=== PATIENT | male | born 1930 | race Caucasian/White ===

== ENCOUNTER 2018-11-10 23:08 | Inpatient (IN) | payer OTHER, MEDICAID ==
[2018-11-10 23:54] LABS: ADD MAN DIFF? NO
[2018-11-10 23:55] LABS: ABNORMAL IP MESSAGE 1; BASOPHIL # 0.1 10^3/ul (0.0-0.1); BASOPHILS % 0.3 % (0.0-2.0); HEMATOCRIT 38.9 % (42.0-52.0); HEMOGLOBIN 12.8 g/dl (14.0-18.0); LYMPHOCYTES # 1.6 10^3/ul (0.8-2.9); LYMPHOCYTES % 8.7 % (15.0-51.0); MEAN CORPUSCULAR HEMOGLOBIN 29.6 pg (29.0-33.0); MEAN CORPUSCULAR HGB CONC 32.9 g/dl (32.0-37.0); MEAN CORPUSCULAR VOLUME 89.8 fl (82.0-101.0); MEAN PLATELET VOLUME 11.6 fl (7.4-10.4); MONOCYTE # 2.8 10^3/ul (0.3-0.9); NEUTROPHIL # 14.1 10^3/ul (1.6-7.5); NEUTROPHILS % 75.1 % (39.0-77.0); PLATELET COUNT 158 10^3/UL (140-415); POSITIVE DIFF @See below; RED BLOOD COUNT 4.33 10^6/ul (4.70-6.10); RED CELL DISTRIBUTION WIDTH 14.6 % (11.5-14.5)
[2018-11-10 23:55] LABS: WHITE BLOOD COUNT 18.8 10^3/ul (4.8-10.8)
[2018-11-11] MEDS: CEFTRIAXONE 1 GM/50 ML (PMX) 50 ML IVPB (00:01)
[2018-11-11] MEDS: ONDANSETRON 4 MG INJ IV ×2 (00:01→01:45)
[2018-11-11] MEDS: SOD CHLORIDE 0.9% 1,000 ML IV ×3 (00:01→12:08)
[2018-11-11 00:12] LABS: ALANINE AMINOTRANSFERASE 22 IU/L (13-69); ALBUMIN 3.2 g/dl (3.3-4.9); ALBUMIN/GLOBULIN RATIO 0.82; ALKALINE PHOSPHATASE 89 IU/L (42-121); ANION GAP 13 (5-13); ASPARTATE AMINO TRANSFERASE 22 IU/L (15-46); BILIRUBIN,INDIRECT 1.9 mg/dl (0-1.1); BILIRUBIN,TOTAL 1.9 mg/dl (0.2-1.3); BLOOD UREA NITROGEN 35 mg/dl (7-20); CALCIUM 8.7 mg/dl (8.4-10.2); CARBON DIOXIDE 22 mmol/L (21-31); CHLORIDE 99 mmol/L (97-110); CREATININE 1.28 mg/dl (0.61-1.24); GLUCOSE 293 mg/dl (70-220); LIPASE 30 U/L (23-300); POTASSIUM 4.3 mmol/L (3.5-5.1); SODIUM 134 mmol/L (135-144); TOTAL PROTEIN 7.1 g/dl (6.1-8.1)
[2018-11-11 00:15] LABS: INR 1.87; PROTIME 21.6 Sec (11.9-14.9); PT RATIO 1.7
[2018-11-11 00:16] LABS: PARTIAL THROMBOPLASTIN TIME 67.3 Sec (23.0-35.0)
[2018-11-11] MEDS: PANTOPRAZOLE IV 80 MG in SOD CHLORIDE 0.9% 100 ML IVPB (00:35)
[2018-11-11] MEDS: PANTOPRAZOLE IV 80 MG in SOD CHLORIDE 0.9% 100 ML IV ×3 (00:53→18:23)
[2018-11-11] MEDS: OCTREOTIDE 50 MCG in SOD CHLORIDE 0.9% 25 ML IVPB (00:54)
[2018-11-11] MEDS: OCTREOTIDE 500 MCG in SOD CHLORIDE 0.9% 49 ML IV (01:03)
[2018-11-11] MEDS: morphine 4 MG/ML VIAL IV (01:45)
[2018-11-11] MEDS ORDERED: ACETAMINOPHEN 325 MG TAB PO (02:00)
[2018-11-11] MEDS ORDERED: NACL 0.9% 3 ML SYG IV (02:00)
[2018-11-11] MEDS ORDERED: ONDANSETRON 4 MG INJ IV (02:00)
[2018-11-11] MEDS: HYDROmorphONE 0.5 MG/0.5 ML SYG IV ×2 (04:05→08:59)
[2018-11-11 05:46] LABS: ADD MAN DIFF? NO; HAAIG REFLEX REFLEX FILED
[2018-11-11 05:50] LABS: WHITE BLOOD COUNT 22.1 10^3/ul (4.8-10.8)
[2018-11-11 05:51] LABS: ABNORMAL IP MESSAGE 1; BASOPHILS % 0.2 % (0.0-2.0); HEMATOCRIT 38.9 % (42.0-52.0); LYMPHOCYTES # 1.9 10^3/ul (0.8-2.9); LYMPHOCYTES % 8.4 % (15.0-51.0); MEAN CORPUSCULAR HEMOGLOBIN 29.7 pg (29.0-33.0); MEAN CORPUSCULAR HGB CONC 33.4 g/dl (32.0-37.0); MEAN CORPUSCULAR VOLUME 88.8 fl (82.0-101.0); MEAN PLATELET VOLUME 11.2 fl (7.4-10.4); MONOCYTE # 2.6 10^3/ul (0.3-0.9); MONOCYTES % 11.7 % (0.0-11.0); NEUTROPHIL # 17.4 10^3/ul (1.6-7.5); NEUTROPHILS % 78.6 % (39.0-77.0); PLATELET COUNT 208 10^3/UL (140-415); POSITIVE DIFF @See below; RED BLOOD COUNT 4.38 10^6/ul (4.70-6.10); RED CELL DISTRIBUTION WIDTH 14.8 % (11.5-14.5)
[2018-11-11 06:00] LABS: LACTIC ACID 1.7 mmol/L (0.5-2.0)
[2018-11-11 06:41] LABS: HEMOGLOBIN A1C 7.5 % (0-5.9)
[2018-11-11] MEDS: PIPER-TAZO 3.375 GM IV (PMX) 100 ML IVPB ×3 (06:44→20:37)
[2018-11-11 07:03] LABS: CHOLESTEROL 139 mg/dl (100-200)
[2018-11-11 07:03] LABS: CHOL/HDL RATIO 5.5 RATIO; HDL CHOLESTEROL 25 mg/dl (31-75); LDL CHOLESTEROL,CALCULATED 100 mg/dl; TRIGLYCERIDES 69 mg/dl (0-149)
[2018-11-11 07:55] LABS: MAGNESIUM 1.8 mg/dl (1.7-2.5)
[2018-11-11 08:25] LABS: THYROID STIMULATING HORMONE 0.463 MIU/L (0.465-4.680)
[2018-11-11 08:28] LABS: HEPATITIS B SURFACE ANTIBODY NEGATIVE (NEGATIVE)
[2018-11-11] MEDS: LIDOCAINE/MYLANTA 40 ML BTL PO (08:58)
[2018-11-11] MEDS: DEXTROSE 5%-0.45% NACL 1,000 ML IV (08:59)
[2018-11-11] MEDS: OCTREOTIDE 1 MG in DEXTROSE 5% 95 ML IV (09:27)
[2018-11-11] MEDS: INSULIN ASPART [NOVOLOG] 3 ML PEN SC ×4 (09:33→20:44)
[2018-11-11 11:29] LABS: ADD MAN DIFF? NO
[2018-11-11 11:30] LABS: ABNORMAL IP MESSAGE 1; BASOPHILS % 0.2 % (0.0-2.0); HEMATOCRIT 37.8 % (42.0-52.0); HEMOGLOBIN 12.4 g/dl (14.0-18.0); LYMPHOCYTES # 1.9 10^3/ul (0.8-2.9); LYMPHOCYTES % 8.8 % (15.0-51.0); MEAN CORPUSCULAR HEMOGLOBIN 29.5 pg (29.0-33.0); MEAN CORPUSCULAR HGB CONC 32.8 g/dl (32.0-37.0); MEAN CORPUSCULAR VOLUME 89.8 fl (82.0-101.0); MEAN PLATELET VOLUME 11.2 fl (7.4-10.4); MONOCYTE # 2.3 10^3/ul (0.3-0.9); MONOCYTES % 10.9 % (0.0-11.0); NEUTROPHILS % 78.9 % (39.0-77.0); PLATELET COUNT 188 10^3/UL (140-415); POSITIVE DIFF @See below; RED BLOOD COUNT 4.21 10^6/ul (4.70-6.10); RED CELL DISTRIBUTION WIDTH 15.1 % (11.5-14.5)
[2018-11-11 11:30] LABS: WHITE BLOOD COUNT 21.5 10^3/ul (4.8-10.8)
[2018-11-11] MEDS ORDERED: GLUCOSE GEL 15 GRAM TUBE BUCCAL (12:00)
[2018-11-11] MEDS ORDERED: GLUCOSE GEL 15 GRAM TUBE PO ×2 (12:00)
[2018-11-11] MEDS ORDERED: DEXTROSE 50% 50 ML SYRINGE IV ×2 (12:00)
[2018-11-11] MEDS ORDERED: GLUCAGON 1 MG INJ IM (12:00)
[2018-11-11] MEDS: POLYETHYLENE GLYCOL 17 GM PACKET PO (12:00)
[2018-11-11 12:06] LABS: HEPATITIS B SURFACE ANTIGEN NEGATIVE (NEGATIVE)
[2018-11-11] MEDS: METOPROLOL 5 MG INJ IV (12:09)
[2018-11-11 12:23] LABS: HEPATITIS B CORE ANTIBODY NEGATIVE (NEGATIVE); HEPATITIS C VIRAL ANTIBODY NEGATIVE (NEGATIVE)
[2018-11-11 15:52] LABS: TYPE AND SCREEN 1 1
[2018-11-11 17:17] LABS: ADD MAN DIFF? NO
[2018-11-11 17:18] LABS: ABNORMAL IP MESSAGE 1; BASOPHIL # 0.1 10^3/ul (0.0-0.1); BASOPHILS % 0.3 % (0.0-2.0); HEMATOCRIT 38.1 % (42.0-52.0); HEMOGLOBIN 12.3 g/dl (14.0-18.0); LYMPHOCYTES # 1.3 10^3/ul (0.8-2.9); LYMPHOCYTES % 6.3 % (15.0-51.0); MEAN CORPUSCULAR HEMOGLOBIN 29.9 pg (29.0-33.0); MEAN CORPUSCULAR HGB CONC 32.3 g/dl (32.0-37.0); MEAN CORPUSCULAR VOLUME 92.5 fl (82.0-101.0); MEAN PLATELET VOLUME 11.1 fl (7.4-10.4); MONOCYTE # 2.4 10^3/ul (0.3-0.9); MONOCYTES % 11.7 % (0.0-11.0); NEUTROPHIL # 16.6 10^3/ul (1.6-7.5); NEUTROPHILS % 80.1 % (39.0-77.0); PLATELET COUNT 172 10^3/UL (140-415); POSITIVE DIFF @See below; RED BLOOD COUNT 4.12 10^6/ul (4.70-6.10); RED CELL DISTRIBUTION WIDTH 15.2 % (11.5-14.5)
[2018-11-11 17:18] LABS: WHITE BLOOD COUNT 20.7 10^3/ul (4.8-10.8)
[2018-11-11] MEDS: DOCUSATE SODIUM 100 MG CAP PO (20:16)
[2018-11-11] MEDS: METOPROLOL 25 MG TAB PO (20:16)
[2018-11-11] MEDS ORDERED: CEFTRIAXONE 1 GM/50 ML (PMX) 50 ML IVPB (22:00)
[2018-11-11 23:02] LABS: ADD UMIC YES; UR ASCORBIC ACID NEGATIVE (NEGATIVE); UR BACTERIA FEW /HPF (NONE SEEN); UR BILIRUBIN (Dip) NEGATIVE (NEGATIVE); UR BLOOD (Dip) NEGATIVE (NEGATIVE); UR CLARITY SLIGHTLY CLOUDY (CLEAR); UR COLOR AMBER (YELLOW); UR GLUCOSE (Dip) 2+ mg/dL (NEGATIVE); UR KETONES (Dip) NEGATIVE (NEGATIVE); UR LEUKOCYTE ESTERASE (Dip) NEGATIVE Leu/ul (NEGATIVE); UR MUCUS FEW /HPF (NONE SEEN); UR NITRITE (Dip) NEGATIVE (NEGATIVE); UR RBC 3 /HPF (0-5); UR TOTAL PROTEIN (Dip) 1+ mg/dl (NEGATIVE); UR UROBILINOGEN (Dip) NEGATIVE (NEGATIVE); UR WBC 0 /HPF (0-5)
[2018-11-11 23:12] LABS: CREATININE,URINE RANDOM 125.62 mg/dl (20-370)
[2018-11-11 23:12] LABS: SODIUM,URINE RANDOM 28 mmol/L (30-90)
[2018-11-11 23:42] LABS: ADD MAN DIFF? NO
[2018-11-11 23:44] LABS: ABNORMAL IP MESSAGE 1; BASOPHIL # 0.1 10^3/ul (0.0-0.1); BASOPHILS % 0.3 % (0.0-2.0); HEMATOCRIT 36.6 % (42.0-52.0); HEMOGLOBIN 11.9 g/dl (14.0-18.0); LYMPHOCYTES # 2.1 10^3/ul (0.8-2.9); LYMPHOCYTES % 10.5 % (15.0-51.0); MEAN CORPUSCULAR HEMOGLOBIN 29.8 pg (29.0-33.0); MEAN CORPUSCULAR HGB CONC 32.5 g/dl (32.0-37.0); MEAN CORPUSCULAR VOLUME 91.5 fl (82.0-101.0); MEAN PLATELET VOLUME 10.6 fl (7.4-10.4); MONOCYTE # 2.1 10^3/ul (0.3-0.9); MONOCYTES % 10.4 % (0.0-11.0); NEUTROPHIL # 15.6 10^3/ul (1.6-7.5); NEUTROPHILS % 77.1 % (39.0-77.0); PLATELET COUNT 184 10^3/UL (140-415); POSITIVE DIFF @See below
[2018-11-11 23:44] LABS: WHITE BLOOD COUNT 20.2 10^3/ul (4.8-10.8)
[2018-11-12] MEDS: INSULIN ASPART [NOVOLOG] 3 ML PEN SC ×3 (01:00→07:57)
[2018-11-12] MEDS: ACCU-CHEK XX (02:00)
[2018-11-12] MEDS: SOD CHLORIDE 0.9% 1,000 ML IV ×2 (04:40→10:49)
[2018-11-12] MEDS: PIPER-TAZO 3.375 GM IV (PMX) 100 ML IVPB ×3 (05:45→21:38)
[2018-11-12] MEDS: PANTOPRAZOLE IV 80 MG in SOD CHLORIDE 0.9% 100 ML IV (05:45)
[2018-11-12 07:12] LABS: ANION GAP 10 (5-13); BLOOD UREA NITROGEN 36 mg/dl (7-20); CALCIUM 8.1 mg/dl (8.4-10.2); CARBON DIOXIDE 25 mmol/L (21-31); CHLORIDE 103 mmol/L (97-110); CREATININE 1.66 mg/dl (0.61-1.24); GLUCOSE 168 mg/dl (70-220); PHOSPHORUS 4.2 mg/dl (2.5-4.9); POTASSIUM 4.7 mmol/L (3.5-5.1); SODIUM 138 mmol/L (135-144)
[2018-11-12] MEDS: METOPROLOL 25 MG TAB PO (07:51)
[2018-11-12] MEDS: POLYETHYLENE GLYCOL 17 GM PACKET PO (07:51)
[2018-11-12] MEDS: DOCUSATE SODIUM 100 MG CAP PO ×2 (07:51→21:37)
[2018-11-12] MEDS: Insulin NOVOLOG SS MILD Algorithm (SS with meals and bedtime) SC ×3 (11:56→21:00)
[2018-11-12] MEDS: HYDROmorphONE 0.5 MG/0.5 ML SYG IV (15:56)
[2018-11-12] MEDS: PANTOPRAZOLE 40 MG INJ IV (17:30)
[2018-11-12] MEDS ORDERED: INSULIN ASPART [NOVOLOG] 3 ML PEN SC (17:30)
[2018-11-12] MEDS: METOPROLOL 50 MG TAB PO (21:00)
[2018-11-13] MEDS: SOD CHLORIDE 0.9% 250 ML IV (01:12)
[2018-11-13] MEDS: HYDROmorphONE 0.5 MG/0.5 ML SYG IV ×3 (01:39→21:47)
[2018-11-13] MEDS: ACCU-CHEK XX (02:00)
[2018-11-13] MEDS: SOD CHLORIDE 0.9% 500 ML IV (02:01)
[2018-11-13] MEDS ORDERED: LORAZEPAM 2 MG INJ (02:16)
[2018-11-13] MEDS: LORAZEPAM 2 MG INJ IV (02:21)
[2018-11-13] MEDS: METOPROLOL 5 MG INJ IV ×4 (04:08→06:50)
[2018-11-13] MEDS: PANTOPRAZOLE 40 MG INJ IV ×2 (05:02→16:56)
[2018-11-13 06:22] LABS: ADD MAN DIFF? NO
[2018-11-13 06:31] LABS: BASOPHILS % 0.1 % (0.0-2.0); EOSINOPHILS % 0.4 % (0.0-7.0); HEMATOCRIT 33.7 % (42.0-52.0); HEMOGLOBIN 10.9 g/dl (14.0-18.0); LYMPHOCYTES # 1.8 10^3/ul (0.8-2.9); LYMPHOCYTES % 20.4 % (15.0-51.0); MEAN CORPUSCULAR HEMOGLOBIN 29.7 pg (29.0-33.0); MEAN CORPUSCULAR HGB CONC 32.3 g/dl (32.0-37.0); MEAN CORPUSCULAR VOLUME 91.8 fl (82.0-101.0); MEAN PLATELET VOLUME 11.5 fl (7.4-10.4); MONOCYTE # 0.7 10^3/ul (0.3-0.9); MONOCYTES % 7.4 % (0.0-11.0); NEUTROPHIL # 6.4 10^3/ul (1.6-7.5); NEUTROPHILS % 70.8 % (39.0-77.0); PLATELET COUNT 150 10^3/UL (140-415); RED BLOOD COUNT 3.67 10^6/ul (4.70-6.10); RED CELL DISTRIBUTION WIDTH 15.4 % (11.5-14.5)
[2018-11-13] MEDS: PIPER-TAZO 3.375 GM IV (PMX) 100 ML IVPB ×3 (06:48→21:39)
[2018-11-13 06:54] LABS: ANION GAP 9 (5-13); BLOOD UREA NITROGEN 39 mg/dl (7-20); CALCIUM 7.7 mg/dl (8.4-10.2); CARBON DIOXIDE 21 mmol/L (21-31); CHLORIDE 109 mmol/L (97-110); CREATININE 1.44 mg/dl (0.61-1.24); GLUCOSE 146 mg/dl (70-220); MAGNESIUM 2.2 mg/dl (1.7-2.5); PHOSPHORUS 3.9 mg/dl (2.5-4.9); POTASSIUM 3.9 mmol/L (3.5-5.1); SODIUM 139 mmol/L (135-144)
[2018-11-13] MEDS: Insulin NOVOLOG SS MILD Algorithm (SS with meals and bedtime) SC ×4 (07:00→21:00)
[2018-11-13] MEDS: POLYETHYLENE GLYCOL 17 GM PACKET PO (08:12)
[2018-11-13] MEDS: DOCUSATE SODIUM 100 MG CAP PO ×2 (08:13→21:39)
[2018-11-13] MEDS: METOPROLOL 50 MG TAB PO ×2 (08:13→21:00)
[2018-11-13] MEDS: HEPARIN 5,000 UNIT/1 ML VIAL SC ×2 (08:24→21:00)
[2018-11-13] MEDS: SOD CHLORIDE 0.9% 1,000 ML IV ×2 (09:07→13:02)
[2018-11-13] MEDS: TAMSULOSIN (SR) 0.4 MG CAP PO ×2 (12:20→21:38)
[2018-11-13] MEDS: FINASTERIDE 5 MG TAB PO (14:30)
[2018-11-13] MEDS: BALSAM PERU/CASTOR OIL 60 GM TUBE TOP (21:38)
[2018-11-13] MEDS: DILTIAZEM 25 MG INJ IV (23:00)
[2018-11-14] MEDS: ACCU-CHEK XX (01:50)
[2018-11-14] MEDS: SOD CHLORIDE 0.9% 1,000 ML IV ×2 (03:34→21:37)
[2018-11-14] MEDS: PANTOPRAZOLE 40 MG INJ IV ×2 (05:21→17:32)
[2018-11-14] MEDS: PIPER-TAZO 3.375 GM IV (PMX) 100 ML IVPB ×3 (05:23→21:32)
[2018-11-14 06:54] LABS: ADD MAN DIFF? NO
[2018-11-14 07:00] LABS: WHITE BLOOD COUNT 5.4 10^3/ul (4.8-10.8)
[2018-11-14 07:00] LABS: BASOPHILS % 0.4 % (0.0-2.0); EOSINOPHILS # 0.1 10^3/ul (0.0-0.5); EOSINOPHILS % 1.7 % (0.0-7.0); HEMATOCRIT 35.9 % (42.0-52.0); HEMOGLOBIN 11.2 g/dl (14.0-18.0); LYMPHOCYTES # 1.2 10^3/ul (0.8-2.9); LYMPHOCYTES % 22.4 % (15.0-51.0); MEAN CORPUSCULAR HEMOGLOBIN 29.6 pg (29.0-33.0); MEAN CORPUSCULAR HGB CONC 31.2 g/dl (32.0-37.0); MEAN CORPUSCULAR VOLUME 94.7 fl (82.0-101.0); MEAN PLATELET VOLUME 11.1 fl (7.4-10.4); MONOCYTE # 0.4 10^3/ul (0.3-0.9); MONOCYTES % 7.8 % (0.0-11.0); NEUTROPHIL # 3.6 10^3/ul (1.6-7.5); PLATELET COUNT 167 10^3/UL (140-415); RED BLOOD COUNT 3.79 10^6/ul (4.70-6.10); RED CELL DISTRIBUTION WIDTH 15.2 % (11.5-14.5)
[2018-11-14] MEDS: Insulin NOVOLOG SS MILD Algorithm (SS with meals and bedtime) SC ×4 (07:00→21:00)
[2018-11-14 07:33] LABS: ANION GAP 9 (5-13); BLOOD UREA NITROGEN 38 mg/dl (7-20); CALCIUM 7.7 mg/dl (8.4-10.2); CARBON DIOXIDE 21 mmol/L (21-31); CHLORIDE 110 mmol/L (97-110); CREATININE 1.26 mg/dl (0.61-1.24); GLUCOSE 106 mg/dl (70-220); MAGNESIUM 2.2 mg/dl (1.7-2.5); PHOSPHORUS 3.2 mg/dl (2.5-4.9); POTASSIUM 3.8 mmol/L (3.5-5.1); SODIUM 140 mmol/L (135-144)
[2018-11-14] MEDS: METOPROLOL 50 MG TAB PO ×2 (09:00→21:31)
[2018-11-14] MEDS: DOCUSATE SODIUM 100 MG CAP PO ×2 (10:53→21:31)
[2018-11-14] MEDS: POLYETHYLENE GLYCOL 17 GM PACKET PO (10:53)
[2018-11-14] MEDS: TAMSULOSIN (SR) 0.4 MG CAP PO ×2 (10:53→21:31)
[2018-11-14] MEDS: FINASTERIDE 5 MG TAB PO (10:53)
[2018-11-14] MEDS: BALSAM PERU/CASTOR OIL 60 GM TUBE TOP ×2 (10:54→21:31)
[2018-11-14] MEDS: HEPARIN 5,000 UNIT/1 ML VIAL SC ×2 (10:55→22:05)
[2018-11-14 13:29] LABS: OCCULT BLOOD STOOL POSITIVE (NEGATIVE)
[2018-11-14] MEDS: HYDROmorphONE 0.5 MG/0.5 ML SYG IV (21:42)
[2018-11-15] MEDS: ACCU-CHEK XX (01:45)
[2018-11-15] MEDS: PIPER-TAZO 3.375 GM IV (PMX) 100 ML IVPB ×3 (05:25→21:18)
[2018-11-15] MEDS: PANTOPRAZOLE 40 MG INJ IV ×2 (05:27→18:43)
[2018-11-15 06:30] LABS: ADD MAN DIFF? NO
[2018-11-15 06:47] LABS: WHITE BLOOD COUNT 4.9 10^3/ul (4.8-10.8)
[2018-11-15 06:47] LABS: BASOPHILS % 0.2 % (0.0-2.0); EOSINOPHILS # 0.1 10^3/ul (0.0-0.5); EOSINOPHILS % 1.8 % (0.0-7.0); HEMATOCRIT 31.2 % (42.0-52.0); LYMPHOCYTES # 1.7 10^3/ul (0.8-2.9); LYMPHOCYTES % 34.9 % (15.0-51.0); MEAN CORPUSCULAR HEMOGLOBIN 29.6 pg (29.0-33.0); MEAN CORPUSCULAR HGB CONC 32.1 g/dl (32.0-37.0); MEAN CORPUSCULAR VOLUME 92.3 fl (82.0-101.0); MEAN PLATELET VOLUME 10.8 fl (7.4-10.4); MONOCYTE # 0.5 10^3/ul (0.3-0.9); MONOCYTES % 9.8 % (0.0-11.0); NEUTROPHIL # 2.6 10^3/ul (1.6-7.5); NEUTROPHILS % 52.5 % (39.0-77.0); PLATELET COUNT 180 10^3/UL (140-415); RED BLOOD COUNT 3.38 10^6/ul (4.70-6.10); RED CELL DISTRIBUTION WIDTH 14.9 % (11.5-14.5)
[2018-11-15] MEDS: Insulin NOVOLOG SS MILD Algorithm (SS with meals and bedtime) SC ×4 (07:00→20:13)
[2018-11-15 07:43] LABS: ANION GAP 9 (5-13); BLOOD UREA NITROGEN 34 mg/dl (7-20); CALCIUM 7.8 mg/dl (8.4-10.2); CARBON DIOXIDE 20 mmol/L (21-31); CHLORIDE 111 mmol/L (97-110); CREATININE 1.29 mg/dl (0.61-1.24); GLUCOSE 93 mg/dl (70-220); MAGNESIUM 2.1 mg/dl (1.7-2.5); PHOSPHORUS 2.6 mg/dl (2.5-4.9); POTASSIUM 3.6 mmol/L (3.5-5.1); SODIUM 140 mmol/L (135-144)
[2018-11-15] MEDS: FINASTERIDE 5 MG TAB PO (09:26)
[2018-11-15] MEDS: DOCUSATE SODIUM 100 MG CAP PO ×2 (09:26→20:13)
[2018-11-15] MEDS: TAMSULOSIN (SR) 0.4 MG CAP PO ×2 (09:26→20:13)
[2018-11-15] MEDS: METOPROLOL 50 MG TAB PO ×2 (09:26→20:14)
[2018-11-15] MEDS: BALSAM PERU/CASTOR OIL 60 GM TUBE TOP ×2 (09:26→20:13)
[2018-11-15] MEDS: BISACODYL 10 MG SUPP PR (09:27)
[2018-11-15] MEDS: POLYETHYLENE GLYCOL 17 GM PACKET PO (09:27)
[2018-11-15] MEDS: HEPARIN 5,000 UNIT/1 ML VIAL SC ×2 (09:38→20:19)
[2018-11-15 14:06] LABS: CREATININE, RANDOM URINE 120 mg/dL (20-320); MICROALBUMIN 8.3 mg/dL; MICROALBUMIN/CREATININE RATIO 69 (<30)
[2018-11-15] MEDS: SOD CHLORIDE 0.9% 1,000 ML IV ×2 (16:00→23:42)
[2018-11-15] MEDS: LIDOCAINE 1% (MDV) 20 ML INJ ×3 (20:12)
[2018-11-16] MEDS: ACCU-CHEK XX (01:40)
[2018-11-16] MEDS: PANTOPRAZOLE 40 MG INJ IV ×2 (05:46→17:11)
[2018-11-16] MEDS: PIPER-TAZO 3.375 GM IV (PMX) 100 ML IVPB ×2 (05:47→13:21)
[2018-11-16] MEDS: Insulin NOVOLOG SS MILD Algorithm (SS with meals and bedtime) SC ×3 (06:17→17:15)
[2018-11-16] MEDS: DOCUSATE SODIUM 100 MG CAP PO (08:02)
[2018-11-16] MEDS: METOPROLOL 50 MG TAB PO (08:02)
[2018-11-16] MEDS: TAMSULOSIN (SR) 0.4 MG CAP PO (08:02)
[2018-11-16] MEDS: FINASTERIDE 5 MG TAB PO (08:02)
[2018-11-16] MEDS: POLYETHYLENE GLYCOL 17 GM PACKET PO (08:02)
[2018-11-16] MEDS: HEPARIN 5,000 UNIT/1 ML VIAL SC (08:03)
[2018-11-16] MEDS: BALSAM PERU/CASTOR OIL 60 GM TUBE TOP (08:04)
[2018-11-16] MEDS ORDERED: CALCIUM CARBONATE 500 MG CHEW TAB PO (11:00)
[2018-11-16 11:03] LABS: ANION GAP 7 (5-13); BLOOD UREA NITROGEN 28 mg/dl (7-20); CALCIUM 7.8 mg/dl (8.4-10.2); CARBON DIOXIDE 22 mmol/L (21-31); CHLORIDE 111 mmol/L (97-110); CREATININE 1.22 mg/dl (0.61-1.24); GLUCOSE 138 mg/dl (70-220); POTASSIUM 4.2 mmol/L (3.5-5.1); SODIUM 140 mmol/L (135-144)
== END 2018-11-16 18:40 | DRG 872 ==
LOC: E/R 23:08 → 6WM 11-11 01:30
PROC: 0T9B70Z Drainage of Bladder with Drainage Device, Via Natural or Artificial Opening (ICD-10-PCS; 2018-11-11)
PROC: 30233K1 Transfusion of Nonautologous Frozen Plasma into Peripheral Vein, Percutaneous Approach (ICD-10-PCS; 2018-11-11)
PROC: 0F9430Z Drainage of Gallbladder with Drainage Device, Percutaneous Approach (ICD-10-PCS; principal; 2018-11-12)
DX: A41.9 Sepsis, unspecified organism (principal); K80.00 Calculus of gallbladder with acute cholecystitis without obstruction; R18.8 Other ascites; N17.9 Acute kidney failure, unspecified; Z66 Do not resuscitate; R74.0 Nonspecific elevation of levels of transaminase and lactic acid dehydrogenase [LDH]; R79.1 Abnormal coagulation profile; I25.10 Atherosclerotic heart disease of native coronary artery without angina pectoris; I25.2 Old myocardial infarction; F03.90 Unspecified dementia, unspecified severity, without behavioral disturbance, psychotic disturbance, mood disturbance, and anxiety; K52.9 Noninfective gastroenteritis and colitis, unspecified; E11.51 Type 2 diabetes mellitus with diabetic peripheral angiopathy without gangrene; I48.2 Chronic atrial fibrillation; E03.9 Hypothyroidism, unspecified; N40.1 Benign prostatic hyperplasia with lower urinary tract symptoms; R33.8 Other retention of urine; K59.00 Constipation, unspecified; N21.0 Calculus in bladder; E11.22 Type 2 diabetes mellitus with diabetic chronic kidney disease; I12.9 Hypertensive chronic kidney disease with stage 1 through stage 4 chronic kidney disease, or unspecified chronic kidney disease; N18.9 Chronic kidney disease, unspecified; N32.89 Other specified disorders of bladder; T38.995A Adverse effect of other hormone antagonists, initial encounter; Z86.73 Personal history of transient ischemic attack (TIA), and cerebral infarction without residual deficits; Z89.512 Acquired absence of left leg below knee; Z89.421 Acquired absence of other right toe(s); Z79.84 Long term (current) use of oral hypoglycemic drugs; Z88.2 Allergy status to sulfonamides; Z87.891 Personal history of nicotine dependence
CPT/HCPCS: 36415; 36430; 71045; 74176; 75989; 76705; 76775; 77012; 78226; 80048; 80053; 80061; 81001; 81003; 82043; 82270; 82962; 83036; 83605; 83690; 83735; 84100; 84155; 84300; 84443; 84484; 85025; 85610; 85730; 86704; 86706; 86709; 86803; 86850; 86900; 86901; 87040; 87070; 87075; 87086; 87340; 93005; 93922; 96374; 96375; 96376; 99285-25

== ENCOUNTER 2018-12-14 12:26 | Inpatient (IN) | payer OTHER, MEDICAID ==
[2018-12-14 13:27] LABS: ADD MAN DIFF? NO
[2018-12-14] MEDS: FENTAnyl 50 MCG/ML VIAL IV ×2 (13:29→19:02)
[2018-12-14 13:32] LABS: WHITE BLOOD COUNT 6.1 10^3/ul (4.8-10.8)
[2018-12-14 13:32] LABS: BASOPHILS % 0.5 % (0.0-2.0); EOSINOPHILS # 0.1 10^3/ul (0.0-0.5); EOSINOPHILS % 2.1 % (0.0-7.0); HEMATOCRIT 38.9 % (42.0-52.0); HEMOGLOBIN 12.5 g/dl (14.0-18.0); LYMPHOCYTES # 2.1 10^3/ul (0.8-2.9); MEAN CORPUSCULAR HEMOGLOBIN 28.9 pg (29.0-33.0); MEAN CORPUSCULAR HGB CONC 32.1 g/dl (32.0-37.0); MEAN PLATELET VOLUME 11.3 fl (7.4-10.4); MONOCYTE # 0.6 10^3/ul (0.3-0.9); MONOCYTES % 10.1 % (0.0-11.0); NEUTROPHIL # 3.1 10^3/ul (1.6-7.5); NEUTROPHILS % 51.8 % (39.0-77.0); PLATELET COUNT 196 10^3/UL (140-415); RED BLOOD COUNT 4.32 10^6/ul (4.70-6.10); RED CELL DISTRIBUTION WIDTH 14.5 % (11.5-14.5)
[2018-12-14 13:50] LABS: ALANINE AMINOTRANSFERASE 9 IU/L (13-69); ALBUMIN 3.5 g/dl (3.3-4.9); ALBUMIN/GLOBULIN RATIO 0.79; ALKALINE PHOSPHATASE 119 IU/L (42-121); ANION GAP 7 (5-13); ASPARTATE AMINO TRANSFERASE 19 IU/L (15-46); BILIRUBIN,INDIRECT 0.6 mg/dl (0-1.1); BILIRUBIN,TOTAL 0.6 mg/dl (0.2-1.3); BLOOD UREA NITROGEN 29 mg/dl (7-20); CALCIUM 8.9 mg/dl (8.4-10.2); CARBON DIOXIDE 26 mmol/L (21-31); CHLORIDE 104 mmol/L (97-110); CREATININE 1.22 mg/dl (0.61-1.24); GLUCOSE 251 mg/dl (70-220); LIPASE 64 U/L (23-300); POTASSIUM 4.3 mmol/L (3.5-5.1); SODIUM 137 mmol/L (135-144); TOTAL PROTEIN 7.9 g/dl (6.1-8.1)
[2018-12-14 13:55] LABS: INR 0.98; PARTIAL THROMBOPLASTIN TIME 30.2 Sec (23.0-35.0); PROTIME 13.1 Sec (11.9-14.9)
[2018-12-14 14:02] LABS: TROPONIN-I < 0.012 ng/ml (0.000-0.120)
[2018-12-14 14:17] LABS: URINE PH (Dip) POC 5.5 (5.0-8.5)
[2018-12-14 14:17] LABS: URINE BLOOD (Dip) POC Negative (NEGATIVE); URINE KETONES (Dip) POC Negative (NEGATIVE); URINE LEUKOCYTE EST (Dip) POC Negative (NEGATIVE); URINE NITRITE (Dip) POC Negative (NEGATIVE); URINE TOTAL PROTEIN POC 1+ (NEGATIVE)
[2018-12-14] MEDS: SOD CHLORIDE 0.9% 500 ML IV ×2 (14:25→19:21)
[2018-12-14] MEDS: IOHEXOL 300MG/ML 30 ML BTL (15:48)
[2018-12-14] MEDS ORDERED: LORAZEPAM 2 MG INJ IV (19:00)
[2018-12-14] MEDS ORDERED: NACL 0.9% 3 ML SYG IV (19:00)
[2018-12-14] MEDS ORDERED: ALBUTEROL/IPRATROPIUM (NEB) 3 ML AMP HHN (19:00)
[2018-12-14] MEDS ORDERED: DOCUSATE SODIUM 100 MG CAP PO (19:00)
[2018-12-14] MEDS ORDERED: NON-FORMULARY/PATIENT OWN MED (Tuberculin,Purif.prot.deriv. (Tubersol) 5 TUB) ID (19:00)
[2018-12-14] MEDS ORDERED: SENNA TAB PO (19:00)
[2018-12-14] MEDS ORDERED: NITROGLYCERIN (SL) 0.4 MG TAB SL (19:00)
[2018-12-14] MEDS ORDERED: hydrALAzine 20 MG INJ IV (19:00)
[2018-12-14] MEDS ORDERED: ACETAMINOPHEN 325 MG TAB PO ×2 (19:00)
[2018-12-14] MEDS: PIPER-TAZO 3.375 GM IV (PMX) 100 ML IVPB (19:03)
[2018-12-14 20:01] LABS: FREE T4 (FREE THYROXINE) 1.19 ng/dl (0.85-1.93)
[2018-12-14] MEDS ORDERED: GLUCOSE GEL 15 GRAM TUBE PO ×2 (20:30)
[2018-12-14] MEDS ORDERED: DEXTROSE 50% 50 ML SYRINGE IV ×2 (20:30)
[2018-12-14] MEDS ORDERED: GLUCAGON 1 MG INJ IM (20:30)
[2018-12-14] MEDS ORDERED: GLUCOSE GEL 15 GRAM TUBE BUCCAL (20:30)
[2018-12-14] MEDS ORDERED: NON-FORMULARY/PATIENT OWN MED (Protein Supplement (Promod) 30 ML) PO (21:00)
[2018-12-14] MEDS: SOD CHLORIDE 0.45% 1,000 ML IV (22:02)
[2018-12-14] MEDS: morphine 2 MG INJ IV (22:28)
[2018-12-14] MEDS ORDERED: DIMETHICONE STICK TOP (22:30)
[2018-12-14] MEDS: METOPROLOL 50 MG TAB PO (22:56)
[2018-12-14] MEDS: TAMSULOSIN (SR) 0.4 MG CAP PO (22:56)
[2018-12-15] MEDS: PIPER-TAZO 3.375 GM IV (PMX) 100 ML IVPB ×4 (00:52→18:51)
[2018-12-15] MEDS: INSULIN ASPART [NOVOLOG] 3 ML PEN SC ×6 (01:37→21:35)
[2018-12-15] MEDS: ACCU-CHEK XX (02:25)
[2018-12-15] MEDS ORDERED: PENDING SANTYL ORDER FOR WOUND CARE XX (06:30)
[2018-12-15] MEDS: PANTOPRAZOLE 40 MG INJ IV (06:44)
[2018-12-15] MEDS: SOD CHLORIDE 0.45% 1,000 ML IV ×2 (08:14→21:34)
[2018-12-15] MEDS: ASCORBIC ACID 500 MG TAB PO (08:15)
[2018-12-15] MEDS: FINASTERIDE 5 MG TAB PO (08:16)
[2018-12-15] MEDS: LISINOPRIL 5 MG TAB PO (08:16)
[2018-12-15] MEDS: METOPROLOL 50 MG TAB PO ×2 (08:17→21:28)
[2018-12-15] MEDS ORDERED: PANTOPRAZOLE (EC) 40 MG TAB PO (09:00)
[2018-12-15 10:10] LABS: ADD MAN DIFF? NO
[2018-12-15 10:11] LABS: BASOPHILS % 0.5 % (0.0-2.0); EOSINOPHILS # 0.1 10^3/ul (0.0-0.5); EOSINOPHILS % 1.8 % (0.0-7.0); HEMATOCRIT 36.8 % (42.0-52.0); HEMOGLOBIN 11.6 g/dl (14.0-18.0); LYMPHOCYTES # 1.6 10^3/ul (0.8-2.9); LYMPHOCYTES % 27.9 % (15.0-51.0); MEAN CORPUSCULAR HEMOGLOBIN 28.8 pg (29.0-33.0); MEAN CORPUSCULAR HGB CONC 31.5 g/dl (32.0-37.0); MEAN CORPUSCULAR VOLUME 91.3 fl (82.0-101.0); MEAN PLATELET VOLUME 10.7 fl (7.4-10.4); MONOCYTE # 0.6 10^3/ul (0.3-0.9); MONOCYTES % 10.2 % (0.0-11.0); NEUTROPHIL # 3.3 10^3/ul (1.6-7.5); NEUTROPHILS % 59.2 % (39.0-77.0); PLATELET COUNT 209 10^3/UL (140-415); RED BLOOD COUNT 4.03 10^6/ul (4.70-6.10); RED CELL DISTRIBUTION WIDTH 14.6 % (11.5-14.5)
[2018-12-15 10:11] LABS: WHITE BLOOD COUNT 5.6 10^3/ul (4.8-10.8)
[2018-12-15 10:23] LABS: HEMOGLOBIN A1C 7.7 % (0-5.9)
[2018-12-15 10:33] LABS: CHOLESTEROL 159 mg/dl (100-200)
[2018-12-15 10:33] LABS: CHOL/HDL RATIO 6.9 RATIO; HDL CHOLESTEROL 23 mg/dl (31-75); LDL CHOLESTEROL,CALCULATED 107 mg/dl; TRIGLYCERIDES 145 mg/dl (0-149)
[2018-12-15 10:34] LABS: ANION GAP 9 (5-13); BLOOD UREA NITROGEN 22 mg/dl (7-20); CALCIUM 8.6 mg/dl (8.4-10.2); CARBON DIOXIDE 23 mmol/L (21-31); CHLORIDE 105 mmol/L (97-110); CREATININE 1.22 mg/dl (0.61-1.24); GLUCOSE 181 mg/dl (70-220); MAGNESIUM 1.7 mg/dl (1.7-2.5); POTASSIUM 4.5 mmol/L (3.5-5.1); SODIUM 137 mmol/L (135-144)
[2018-12-15] MEDS ORDERED: METOCLOPRAMIDE 10 MG INJ IV (16:30)
[2018-12-15] MEDS ORDERED: EPHEDrine SULFATE 50 MG/5 ML SYG IV (16:30)
[2018-12-15] MEDS ORDERED: ONDANSETRON 4 MG INJ IV (16:30)
[2018-12-15] MEDS ORDERED: DIPHENHYDRAMINE 50 MG INJ IV (16:30)
[2018-12-15] MEDS ORDERED: MEPERIDINE 25 MG INJ IV (16:30)
[2018-12-15] MEDS ORDERED: LABETALOL HCL 20MG INJ IV (16:30)
[2018-12-15] MEDS ORDERED: OXYCODONE/ACETAMINOPHEN (5/325) TAB PO ×2 (16:30)
[2018-12-15] MEDS ORDERED: FENTAnyl 50 MCG/ML VIAL IV ×3 (16:30)
[2018-12-15] MEDS ORDERED: MIDAZOLAM 1 MG/ML 2 ML INJ IV (16:30)
[2018-12-15] MEDS ORDERED: hydrALAzine 20 MG INJ IV (16:30)
[2018-12-15] MEDS: MULTIVITAMINS/MINERALS TAB PO (18:50)
[2018-12-15] MEDS: LIDOCAINE 1% (MDV) 20 ML INJ (21:16)
[2018-12-15] MEDS: IOHEXOL 300MG/ML 30 ML BTL (21:16)
[2018-12-15] MEDS: PROPOFOL 0 ML (21:17)
[2018-12-15] MEDS: FENTAnyl 50 MCG/ML VIAL ×2 (21:17→21:18)
[2018-12-15] MEDS: MIDAZOLAM 1 MG/ML 2 ML INJ ×2 (21:17)
[2018-12-15] MEDS: PROPOFOL 20 ML (21:18)
[2018-12-15] MEDS: TAMSULOSIN (SR) 0.4 MG CAP PO (21:27)
[2018-12-15] MEDS: HYDROCODONE/APAP (5/325) TAB PO (21:29)
[2018-12-16] MEDS: PIPER-TAZO 3.375 GM IV (PMX) 100 ML IVPB ×4 (00:32→17:41)
[2018-12-16] MEDS ORDERED: ACCU-CHEK XX (02:00)
[2018-12-16] MEDS: ACCU-CHEK XX (02:39)
[2018-12-16] MEDS: PANTOPRAZOLE 40 MG INJ IV (05:38)
[2018-12-16 06:17] LABS: ADD MAN DIFF? NO
[2018-12-16 06:27] LABS: WHITE BLOOD COUNT 4.8 10^3/ul (4.8-10.8)
[2018-12-16 06:27] LABS: BASOPHILS % 0.6 % (0.0-2.0); EOSINOPHILS # 0.1 10^3/ul (0.0-0.5); EOSINOPHILS % 2.5 % (0.0-7.0); HEMATOCRIT 34.6 % (42.0-52.0); HEMOGLOBIN 11.1 g/dl (14.0-18.0); LYMPHOCYTES # 1.5 10^3/ul (0.8-2.9); LYMPHOCYTES % 30.5 % (15.0-51.0); MEAN CORPUSCULAR HEMOGLOBIN 28.5 pg (29.0-33.0); MEAN CORPUSCULAR HGB CONC 32.1 g/dl (32.0-37.0); MEAN CORPUSCULAR VOLUME 88.9 fl (82.0-101.0); MEAN PLATELET VOLUME 11.2 fl (7.4-10.4); MONOCYTE # 0.7 10^3/ul (0.3-0.9); MONOCYTES % 13.6 % (0.0-11.0); NEUTROPHIL # 2.5 10^3/ul (1.6-7.5); NEUTROPHILS % 52.4 % (39.0-77.0); PLATELET COUNT 187 10^3/UL (140-415); RED BLOOD COUNT 3.89 10^6/ul (4.70-6.10); RED CELL DISTRIBUTION WIDTH 14.6 % (11.5-14.5)
[2018-12-16 06:39] LABS: ANION GAP 6 (5-13); BLOOD UREA NITROGEN 27 mg/dl (7-20); CALCIUM 8.5 mg/dl (8.4-10.2); CARBON DIOXIDE 23 mmol/L (21-31); CHLORIDE 108 mmol/L (97-110); CREATININE 1.44 mg/dl (0.61-1.24); GLUCOSE 247 mg/dl (70-220); SODIUM 137 mmol/L (135-144)
[2018-12-16] MEDS: ASCORBIC ACID 500 MG TAB PO (08:44)
[2018-12-16] MEDS: MULTIVITAMINS/MINERALS TAB PO (08:44)
[2018-12-16] MEDS: FINASTERIDE 5 MG TAB PO (08:44)
[2018-12-16] MEDS: LISINOPRIL 5 MG TAB PO (08:45)
[2018-12-16] MEDS: METOPROLOL 50 MG TAB PO ×2 (08:46→21:49)
[2018-12-16] MEDS: INSULIN ASPART [NOVOLOG] 3 ML PEN SC ×4 (08:49→21:51)
[2018-12-16] MEDS: SOD CHLORIDE 0.45% 1,000 ML IV (11:28)
[2018-12-16] MEDS: HYDROCODONE/APAP (5/325) TAB PO ×2 (15:37→21:50)
[2018-12-16] MEDS: TAMSULOSIN (SR) 0.4 MG CAP PO (21:50)
[2018-12-17] MEDS: SOD CHLORIDE 0.45% 1,000 ML IV ×2 (00:14→06:27)
[2018-12-17] MEDS: PIPER-TAZO 3.375 GM IV (PMX) 100 ML IVPB ×4 (00:47→17:22)
[2018-12-17] MEDS: ACCU-CHEK XX (02:00)
[2018-12-17] MEDS: PANTOPRAZOLE 40 MG INJ IV (05:11)
[2018-12-17 07:33] LABS: ADD MAN DIFF? NO
[2018-12-17 07:41] LABS: WHITE BLOOD COUNT 6.1 10^3/ul (4.8-10.8)
[2018-12-17 07:41] LABS: BASOPHILS % 0.7 % (0.0-2.0); EOSINOPHILS # 0.2 10^3/ul (0.0-0.5); EOSINOPHILS % 2.5 % (0.0-7.0); LYMPHOCYTES # 2.1 10^3/ul (0.8-2.9); LYMPHOCYTES % 33.9 % (15.0-51.0); MEAN CORPUSCULAR HEMOGLOBIN 28.2 pg (29.0-33.0); MEAN CORPUSCULAR HGB CONC 31.6 g/dl (32.0-37.0); MEAN CORPUSCULAR VOLUME 89.2 fl (82.0-101.0); MEAN PLATELET VOLUME 11.7 fl (7.4-10.4); MONOCYTE # 0.7 10^3/ul (0.3-0.9); MONOCYTES % 11.4 % (0.0-11.0); NEUTROPHIL # 3.1 10^3/ul (1.6-7.5); NEUTROPHILS % 51.2 % (39.0-77.0); PLATELET COUNT 176 10^3/UL (140-415); RED BLOOD COUNT 4.26 10^6/ul (4.70-6.10); RED CELL DISTRIBUTION WIDTH 14.6 % (11.5-14.5)
[2018-12-17 08:01] LABS: ANION GAP 10 (5-13); BLOOD UREA NITROGEN 23 mg/dl (7-20); CALCIUM 8.6 mg/dl (8.4-10.2); CARBON DIOXIDE 23 mmol/L (21-31); CHLORIDE 106 mmol/L (97-110); CREATININE 1.16 mg/dl (0.61-1.24); GLUCOSE 190 mg/dl (70-220); POTASSIUM 4.2 mmol/L (3.5-5.1); SODIUM 139 mmol/L (135-144)
[2018-12-17] MEDS: ASCORBIC ACID 500 MG TAB PO (08:39)
[2018-12-17] MEDS: MULTIVITAMINS/MINERALS TAB PO (08:39)
[2018-12-17] MEDS: FINASTERIDE 5 MG TAB PO (08:39)
[2018-12-17] MEDS: INSULIN ASPART [NOVOLOG] 3 ML PEN SC ×4 (08:39→22:24)
[2018-12-17] MEDS: METOPROLOL 50 MG TAB PO ×2 (08:40→22:23)
[2018-12-17] MEDS: LISINOPRIL 5 MG TAB PO (08:41)
[2018-12-17] MEDS: TAMSULOSIN (SR) 0.4 MG CAP PO (22:23)
[2018-12-18] MEDS: PIPER-TAZO 3.375 GM IV (PMX) 100 ML IVPB ×6 (00:36→17:37)
[2018-12-18] MEDS: ACCU-CHEK XX (02:00)
[2018-12-18] MEDS: SOD CHLORIDE 0.45% 1,000 ML IV ×3 (02:54→16:14)
[2018-12-18] MEDS: PANTOPRAZOLE (EC) 40 MG TAB PO (06:14)
[2018-12-18] MEDS: LISINOPRIL 5 MG TAB PO (08:39)
[2018-12-18] MEDS: FINASTERIDE 5 MG TAB PO (08:42)
[2018-12-18] MEDS: HYDROCODONE/APAP (5/325) TAB PO (08:42)
[2018-12-18] MEDS: MULTIVITAMINS/MINERALS TAB PO (08:42)
[2018-12-18] MEDS: ASCORBIC ACID 500 MG TAB PO (08:43)
[2018-12-18] MEDS: METOPROLOL 50 MG TAB PO ×2 (08:43→21:15)
[2018-12-18] MEDS: INSULIN ASPART [NOVOLOG] 3 ML PEN SC ×4 (08:47→21:14)
[2018-12-18] MEDS: INSULIN GLARGINE [LANTus] (100 UNITS/ML) SYG SC (10:44)
[2018-12-18] MEDS: KETOROLAC 15 MG INJ IV ×2 (12:32→21:44)
[2018-12-18] MEDS: TAMSULOSIN (SR) 0.4 MG CAP PO (21:14)
[2018-12-19] MEDS: SOD CHLORIDE 0.45% 1,000 ML IV ×3 (00:08→21:04)
[2018-12-19] MEDS: PIPER-TAZO 3.375 GM IV (PMX) 100 ML IVPB ×5 (00:08→23:34)
[2018-12-19] MEDS: ACCU-CHEK XX (01:39)
[2018-12-19] MEDS: KETOROLAC 15 MG INJ IV (04:55)
[2018-12-19] MEDS: PANTOPRAZOLE (EC) 40 MG TAB PO (05:04)
[2018-12-19 06:13] LABS: ADD MAN DIFF? NO
[2018-12-19 06:19] LABS: BASOPHILS % 0.4 % (0.0-2.0); EOSINOPHILS # 0.2 10^3/ul (0.0-0.5); EOSINOPHILS % 3.3 % (0.0-7.0); HEMATOCRIT 35.4 % (42.0-52.0); HEMOGLOBIN 11.3 g/dl (14.0-18.0); LYMPHOCYTES # 2.1 10^3/ul (0.8-2.9); LYMPHOCYTES % 41.9 % (15.0-51.0); MEAN CORPUSCULAR HEMOGLOBIN 28.6 pg (29.0-33.0); MEAN CORPUSCULAR HGB CONC 31.9 g/dl (32.0-37.0); MEAN CORPUSCULAR VOLUME 89.6 fl (82.0-101.0); MEAN PLATELET VOLUME 11.3 fl (7.4-10.4); MONOCYTE # 0.6 10^3/ul (0.3-0.9); MONOCYTES % 11.4 % (0.0-11.0); NEUTROPHIL # 2.2 10^3/ul (1.6-7.5); NEUTROPHILS % 42.6 % (39.0-77.0); PLATELET COUNT 164 10^3/UL (140-415); RED BLOOD COUNT 3.95 10^6/ul (4.70-6.10); RED CELL DISTRIBUTION WIDTH 14.5 % (11.5-14.5)
[2018-12-19 06:19] LABS: WHITE BLOOD COUNT 5.1 10^3/ul (4.8-10.8)
[2018-12-19 06:46] LABS: ANION GAP 10 (5-13); BLOOD UREA NITROGEN 30 mg/dl (7-20); CALCIUM 8.4 mg/dl (8.4-10.2); CARBON DIOXIDE 23 mmol/L (21-31); CHLORIDE 109 mmol/L (97-110); CREATININE 1.38 mg/dl (0.61-1.24); GLUCOSE 113 mg/dl (70-220); POTASSIUM 3.8 mmol/L (3.5-5.1); SODIUM 142 mmol/L (135-144)
[2018-12-19] MEDS ORDERED: CEFAZOLIN 1 GM INJ (07:00)
[2018-12-19] MEDS ORDERED: DESFLURANE 15 MIN (07:00)
[2018-12-19] MEDS: INSULIN ASPART [NOVOLOG] 3 ML PEN SC ×4 (08:00→20:59)
[2018-12-19] MEDS: INSULIN GLARGINE [LANTus] (100 UNITS/ML) SYG SC (08:00)
[2018-12-19] MEDS: MULTIVITAMINS/MINERALS TAB PO (08:09)
[2018-12-19] MEDS: FINASTERIDE 5 MG TAB PO (08:09)
[2018-12-19] MEDS: ASCORBIC ACID 500 MG TAB PO (08:09)
[2018-12-19] MEDS: DABIGATRAN 150 MG CAP PO (09:00)
[2018-12-19] MEDS: METOPROLOL 50 MG TAB PO ×2 (09:00→21:01)
[2018-12-19] MEDS: LISINOPRIL 5 MG TAB PO (09:00)
[2018-12-19] MEDS ORDERED: ROPIVACAINE 0.5 % 30 ML VIAL (11:13)
[2018-12-19] MEDS ORDERED: ROCURONIUM 50 MG INJ (11:13)
[2018-12-19] MEDS ORDERED: FENTAnyl 50 MCG/ML VIAL ×2 (11:13→13:56)
[2018-12-19] MEDS ORDERED: ETOMIDATE 20 MG INJ (11:13)
[2018-12-19] MEDS ORDERED: METOPROLOL 5 MG INJ (12:05)
[2018-12-19] MEDS ORDERED: ONDANSETRON 4 MG INJ (12:06)
[2018-12-19] MEDS ORDERED: METOCLOPRAMIDE 10 MG INJ (12:06)
[2018-12-19] MEDS ORDERED: PROPOFOL 20 ML (12:24)
[2018-12-19] MEDS: LIDOCAINE 1% (MPF) 30 ML INJ (12:39)
[2018-12-19] MEDS: BUPIVACAINE 0.25%/EPI (SDV) 30 ML INJ (12:39)
[2018-12-19] MEDS ORDERED: ONDANSETRON 4 MG INJ IV ×2 (13:30→14:00)
[2018-12-19] MEDS ORDERED: OXYCODONE/ACETAMINOPHEN (5/325) TAB PO ×2 (13:30)
[2018-12-19] MEDS: ONDANSETRON 4 MG INJ IV (13:31)
[2018-12-19] MEDS ORDERED: FENTAnyl 50 MCG/ML VIAL IV ×2 (14:00)
[2018-12-19] MEDS ORDERED: HYDROmorphONE 1 MG/5 ML IV SYRINGE IV ×3 (14:00)
[2018-12-19] MEDS: FENTAnyl 50 MCG/ML VIAL IV (14:19)
[2018-12-19] MEDS: morphine 2 MG INJ IV (16:37)
[2018-12-19] MEDS: morphine 4 MG/ML VIAL IV (18:27)
[2018-12-19] MEDS: TAMSULOSIN (SR) 0.4 MG CAP PO (20:58)
[2018-12-19] MEDS: CARISOPRODOL 350 MG TAB PO (21:10)
[2018-12-20] MEDS: HYDROCODONE/APAP (5/325) TAB PO (01:25)
[2018-12-20] MEDS: ACCU-CHEK XX (02:00)
[2018-12-20] MEDS: SOD CHLORIDE 0.9% 250 ML IV ×2 (03:52→06:29)
[2018-12-20] MEDS: PIPER-TAZO 3.375 GM IV (PMX) 100 ML IVPB ×3 (05:28→18:21)
[2018-12-20] MEDS: PANTOPRAZOLE (EC) 40 MG TAB PO (05:28)
[2018-12-20 06:56] LABS: WHITE BLOOD COUNT 14.8 10^3/ul (4.8-10.8)
[2018-12-20 06:56] LABS: HEMATOCRIT 34.9 % (42.0-52.0); HEMOGLOBIN 11.1 g/dl (14.0-18.0); MEAN CORPUSCULAR HEMOGLOBIN 28.5 pg (29.0-33.0); MEAN CORPUSCULAR HGB CONC 31.8 g/dl (32.0-37.0); MEAN CORPUSCULAR VOLUME 89.5 fl (82.0-101.0); MEAN PLATELET VOLUME 11.4 fl (7.4-10.4); PLATELET COUNT 173 10^3/UL (140-415); POSITIVE DIFF @See below; RED CELL DISTRIBUTION WIDTH 14.8 % (11.5-14.5)
[2018-12-20 07:00] LABS: ADD MAN DIFF? YES
[2018-12-20 07:31] LABS: ALANINE AMINOTRANSFERASE 37 IU/L (13-69); ALBUMIN 2.7 g/dl (3.3-4.9); ALBUMIN/GLOBULIN RATIO 0.75; ALKALINE PHOSPHATASE 114 IU/L (42-121); ANION GAP 9 (5-13); ASPARTATE AMINO TRANSFERASE 52 IU/L (15-46); BILIRUBIN,INDIRECT 1.1 mg/dl (0-1.1); BILIRUBIN,TOTAL 1.1 mg/dl (0.2-1.3); BLOOD UREA NITROGEN 27 mg/dl (7-20); CALCIUM 8.3 mg/dl (8.4-10.2); CARBON DIOXIDE 20 mmol/L (21-31); CHLORIDE 108 mmol/L (97-110); CREATININE 1.52 mg/dl (0.61-1.24); GLUCOSE 148 mg/dl (70-220); POTASSIUM 4.6 mmol/L (3.5-5.1); SODIUM 137 mmol/L (135-144); TOTAL PROTEIN 6.3 g/dl (6.1-8.1)
[2018-12-20] MEDS: INSULIN ASPART [NOVOLOG] 3 ML PEN SC ×4 (08:00→20:56)
[2018-12-20 08:01] LABS: ANISOCYTOSIS 1+ (0-0); BAND NEUTROPHILS #M 2.6 10^3/ul (0.0-0.6); BAND NEUTROPHILS % (M) 18 % (0-4); LYMPHOCYTES #M 3.2 10^3/ul (0.8-2.9); LYMPHOCYTES % (M) 22 % (15-51); MICROCYTOSIS 1+ (0-0); MONOCYTE #M 0.1 10^3/ul (0.3-0.9); MONOCYTES % (M) 1 % (0-11); PLATELET ESTIMATE NORMAL; POLYCHROMASIA 1+ (0-0); SEG NEUT #M 9.1 10^3/ul (1.6-7.5); SEGMENTED NEUTROPHILS (M) % 59 % (39-77); SMUDGE%M 3 % (0-0)
[2018-12-20] MEDS: ASCORBIC ACID 500 MG TAB PO (08:25)
[2018-12-20] MEDS: FINASTERIDE 5 MG TAB PO (08:25)
[2018-12-20] MEDS: DABIGATRAN 150 MG CAP PO (08:25)
[2018-12-20] MEDS: METOPROLOL 50 MG TAB PO ×2 (08:26→22:12)
[2018-12-20] MEDS: MULTIVITAMINS/MINERALS TAB PO (08:27)
[2018-12-20] MEDS: LISINOPRIL 5 MG TAB PO (08:27)
[2018-12-20] MEDS: SOD CHLORIDE 0.45% 1,000 ML IV (08:29)
[2018-12-20] MEDS: INSULIN GLARGINE [LANTus] (100 UNITS/ML) SYG SC (08:40)
[2018-12-20] MEDS: morphine 2 MG INJ IV ×2 (10:37→12:25)
[2018-12-20] MEDS: CALCIUM CARBONATE 500 MG CHEW TAB PO (15:01)
[2018-12-20] MEDS: TAMSULOSIN (SR) 0.4 MG CAP PO (22:08)
[2018-12-21] MEDS: PIPER-TAZO 3.375 GM IV (PMX) 100 ML IVPB ×4 (00:08→18:02)
[2018-12-21] MEDS: BALSAM PERU/CASTOR OIL 60 GM TUBE TOP ×2 (00:45→08:59)
[2018-12-21] MEDS: morphine 2 MG INJ IV ×2 (00:54→16:30)
[2018-12-21] MEDS: ACCU-CHEK XX (02:00)
[2018-12-21 05:52] LABS: ADD MAN DIFF? NO
[2018-12-21] MEDS: PANTOPRAZOLE (EC) 40 MG TAB PO (05:53)
[2018-12-21 05:54] LABS: BASOPHILS % 0.2 % (0.0-2.0); EOSINOPHILS # 0.1 10^3/ul (0.0-0.5); EOSINOPHILS % 0.7 % (0.0-7.0); HEMATOCRIT 33.8 % (42.0-52.0); LYMPHOCYTES # 2.3 10^3/ul (0.8-2.9); LYMPHOCYTES % 18.9 % (15.0-51.0); MEAN CORPUSCULAR HEMOGLOBIN 28.9 pg (29.0-33.0); MEAN CORPUSCULAR HGB CONC 32.5 g/dl (32.0-37.0); MEAN CORPUSCULAR VOLUME 88.7 fl (82.0-101.0); MEAN PLATELET VOLUME 11.5 fl (7.4-10.4); MONOCYTE # 0.8 10^3/ul (0.3-0.9); MONOCYTES % 6.9 % (0.0-11.0); NEUTROPHIL # 8.8 10^3/ul (1.6-7.5); NEUTROPHILS % 72.6 % (39.0-77.0); PLATELET COUNT 162 10^3/UL (140-415); RED BLOOD COUNT 3.81 10^6/ul (4.70-6.10); RED CELL DISTRIBUTION WIDTH 15.3 % (11.5-14.5)
[2018-12-21 05:54] LABS: WHITE BLOOD COUNT 12.1 10^3/ul (4.8-10.8)
[2018-12-21 06:21] LABS: ALANINE AMINOTRANSFERASE 19 IU/L (13-69); ALBUMIN 2.6 g/dl (3.3-4.9); ALKALINE PHOSPHATASE 84 IU/L (42-121); ASPARTATE AMINO TRANSFERASE 33 IU/L (15-46); BILIRUBIN,INDIRECT 0.9 mg/dl (0-1.1); BILIRUBIN,TOTAL 0.9 mg/dl (0.2-1.3)
[2018-12-21 06:41] LABS: ALANINE AMINOTRANSFERASE 19 IU/L (13-69); ALBUMIN 2.8 g/dl (3.3-4.9); ALBUMIN/GLOBULIN RATIO 0.75; ALKALINE PHOSPHATASE 87 IU/L (42-121); ANION GAP 9 (5-13); ASPARTATE AMINO TRANSFERASE 34 IU/L (15-46); BILIRUBIN,INDIRECT 0.8 mg/dl (0-1.1); BILIRUBIN,TOTAL 0.8 mg/dl (0.2-1.3); BLOOD UREA NITROGEN 34 mg/dl (7-20); CALCIUM 8.5 mg/dl (8.4-10.2); CARBON DIOXIDE 22 mmol/L (21-31); CHLORIDE 105 mmol/L (97-110); CREATININE 1.72 mg/dl (0.61-1.24); GLUCOSE 138 mg/dl (70-220); POTASSIUM 3.9 mmol/L (3.5-5.1); SODIUM 136 mmol/L (135-144); TOTAL PROTEIN 6.5 g/dl (6.1-8.1)
[2018-12-21] MEDS: INSULIN ASPART [NOVOLOG] 3 ML PEN SC ×4 (08:00→20:52)
[2018-12-21] MEDS: INSULIN GLARGINE [LANTus] (100 UNITS/ML) SYG SC (08:53)
[2018-12-21] MEDS: DABIGATRAN 150 MG CAP PO (08:54)
[2018-12-21] MEDS: FINASTERIDE 5 MG TAB PO (08:55)
[2018-12-21] MEDS: ASCORBIC ACID 500 MG TAB PO (08:55)
[2018-12-21] MEDS: MULTIVITAMINS/MINERALS TAB PO (08:58)
[2018-12-21] MEDS: LISINOPRIL 5 MG TAB PO (08:58)
[2018-12-21] MEDS: METOPROLOL 50 MG TAB PO ×2 (08:59→20:51)
[2018-12-21] MEDS ORDERED: BALSAM PERU/CASTOR OIL 60 GM TUBE TOP (09:00)
[2018-12-21] MEDS ORDERED: INDOMETHACIN 50 MG SUPP PR ×2 (09:30→17:00)
[2018-12-21] MEDS: SOD CHLORIDE 0.9% 1,000 ML IV (16:29)
[2018-12-21] MEDS: POLYETHYLENE GLYCOL 17 GM PACKET PO (18:04)
[2018-12-21] MEDS: TAMSULOSIN (SR) 0.4 MG CAP PO (20:51)
[2018-12-21] MEDS: SENNA TAB PO (20:51)
[2018-12-21] MEDS: HYDROCORTISONE 0.5% 28.35 GM OINT TOP (20:52)
[2018-12-22] MEDS: PIPER-TAZO 3.375 GM IV (PMX) 100 ML IVPB ×4 (00:05→18:51)
[2018-12-22] MEDS: INSULIN ASPART [NOVOLOG] 3 ML PEN SC ×6 (01:00→20:46)
[2018-12-22] MEDS: ACCU-CHEK XX (02:35)
[2018-12-22] MEDS: DEXTROSE 5%-0.45% NACL 1,000 ML IV ×3 (05:55→23:23)
[2018-12-22] MEDS: PANTOPRAZOLE (EC) 40 MG TAB PO (05:56)
[2018-12-22 08:23] LABS: ADD MAN DIFF? NO
[2018-12-22 08:34] LABS: BASOPHILS % 0.1 % (0.0-2.0); EOSINOPHILS # 0.1 10^3/ul (0.0-0.5); EOSINOPHILS % 1.9 % (0.0-7.0); HEMATOCRIT 32.6 % (42.0-52.0); HEMOGLOBIN 10.4 g/dl (14.0-18.0); LYMPHOCYTES # 1.8 10^3/ul (0.8-2.9); LYMPHOCYTES % 24.6 % (15.0-51.0); MEAN CORPUSCULAR HEMOGLOBIN 28.8 pg (29.0-33.0); MEAN CORPUSCULAR HGB CONC 31.9 g/dl (32.0-37.0); MEAN CORPUSCULAR VOLUME 90.3 fl (82.0-101.0); MEAN PLATELET VOLUME 11.8 fl (7.4-10.4); MONOCYTE # 0.4 10^3/ul (0.3-0.9); NEUTROPHIL # 4.9 10^3/ul (1.6-7.5); PLATELET COUNT 155 10^3/UL (140-415); RED BLOOD COUNT 3.61 10^6/ul (4.70-6.10); RED CELL DISTRIBUTION WIDTH 15.2 % (11.5-14.5)
[2018-12-22 08:34] LABS: WHITE BLOOD COUNT 7.3 10^3/ul (4.8-10.8)
[2018-12-22 08:44] LABS: ANION GAP 11 (5-13); BLOOD UREA NITROGEN 30 mg/dl (7-20); CALCIUM 8.3 mg/dl (8.4-10.2); CARBON DIOXIDE 20 mmol/L (21-31); CHLORIDE 108 mmol/L (97-110); GLUCOSE 94 mg/dl (70-220); POTASSIUM 3.5 mmol/L (3.5-5.1); SODIUM 139 mmol/L (135-144)
[2018-12-22] MEDS: HYDROCORTISONE 0.5% 28.35 GM OINT TOP ×2 (08:45→20:40)
[2018-12-22] MEDS: ASCORBIC ACID 500 MG TAB PO (08:45)
[2018-12-22] MEDS: MULTIVITAMINS/MINERALS TAB PO (08:45)
[2018-12-22] MEDS: FINASTERIDE 5 MG TAB PO (08:45)
[2018-12-22] MEDS: DABIGATRAN 150 MG CAP PO (08:47)
[2018-12-22] MEDS: INSULIN GLARGINE [LANTus] (100 UNITS/ML) SYG SC (08:48)
[2018-12-22 08:50] LABS: PHOSPHORUS 3.3 mg/dl (2.5-4.9)
[2018-12-22 08:50] LABS: MAGNESIUM 1.7 mg/dl (1.7-2.5)
[2018-12-22] MEDS: METOPROLOL 50 MG TAB PO ×2 (08:50→20:40)
[2018-12-22] MEDS: POLYETHYLENE GLYCOL 17 GM PACKET PO (08:50)
[2018-12-22] MEDS: BALSAM PERU/CASTOR OIL 60 GM TUBE TOP (08:51)
[2018-12-22] MEDS: PETROLATUM 5 GM OINT TOP (09:00)
[2018-12-22] MEDS ORDERED: PETROLATUM 5 GM OINT TOP (09:00)
[2018-12-22] MEDS: morphine 2 MG INJ IV (11:02)
[2018-12-22] MEDS ORDERED: IOHEXOL 300MG/ML 30 ML BTL (16:06)
[2018-12-22] MEDS ORDERED: MIDAZOLAM 1 MG/ML 2 ML INJ (16:41)
[2018-12-22] MEDS ORDERED: PHENYLephrine (100 MCG/ML) 10ML SYG (17:03)
[2018-12-22] MEDS ORDERED: LIDOCAINE 2% (SDV) 5 ML INJ (17:21)
[2018-12-22] MEDS ORDERED: ETOMIDATE 20 MG INJ (17:21)
[2018-12-22] MEDS ORDERED: CEFAZOLIN 1 GM INJ (17:21)
[2018-12-22] MEDS ORDERED: ROCURONIUM 50 MG INJ (17:21)
[2018-12-22] MEDS ORDERED: NEOSTIGMINE 3 MG/3 ML SYRINGE (17:32)
[2018-12-22] MEDS ORDERED: GLYCOPYRROLATE 0.4 MG INJ (17:32)
[2018-12-22] MEDS ORDERED: ONDANSETRON 4 MG INJ IV (18:00)
[2018-12-22] MEDS ORDERED: METOCLOPRAMIDE 10 MG INJ IV (18:00)
[2018-12-22] MEDS ORDERED: LABETALOL HCL 20MG INJ IV (18:00)
[2018-12-22] MEDS ORDERED: DIPHENHYDRAMINE 50 MG INJ IV (18:00)
[2018-12-22] MEDS ORDERED: FENTAnyl 50 MCG/ML VIAL IV (18:00)
[2018-12-22] MEDS ORDERED: MEPERIDINE 25 MG INJ IV (18:00)
[2018-12-22] MEDS: TAMSULOSIN (SR) 0.4 MG CAP PO (20:39)
[2018-12-22] MEDS: SENNA TAB PO (20:39)
[2018-12-23] MEDS: PIPER-TAZO 3.375 GM IV (PMX) 100 ML IVPB ×5 (00:02→23:35)
[2018-12-23] MEDS: ACCU-CHEK XX (02:00)
[2018-12-23] MEDS: PANTOPRAZOLE (EC) 40 MG TAB PO (06:19)
[2018-12-23] MEDS: INSULIN GLARGINE [LANTus] (100 UNITS/ML) SYG SC (08:43)
[2018-12-23] MEDS: INSULIN ASPART [NOVOLOG] 3 ML PEN SC ×4 (08:44→21:00)
[2018-12-23] MEDS: DABIGATRAN 150 MG CAP PO (08:46)
[2018-12-23] MEDS: MULTIVITAMINS/MINERALS TAB PO (08:47)
[2018-12-23] MEDS: PETROLATUM 5 GM OINT TOP (08:47)
[2018-12-23] MEDS: METOPROLOL 50 MG TAB PO ×2 (08:47→21:28)
[2018-12-23] MEDS: ASCORBIC ACID 500 MG TAB PO (08:47)
[2018-12-23] MEDS: FINASTERIDE 5 MG TAB PO (08:47)
[2018-12-23] MEDS: POLYETHYLENE GLYCOL 17 GM PACKET PO (08:48)
[2018-12-23] MEDS: HYDROCORTISONE 0.5% 28.35 GM OINT TOP ×2 (08:48→21:31)
[2018-12-23] MEDS: BALSAM PERU/CASTOR OIL 60 GM TUBE TOP (08:49)
[2018-12-23] MEDS: HYDROCODONE/APAP (5/325) TAB PO (17:40)
[2018-12-23] MEDS: TAMSULOSIN (SR) 0.4 MG CAP PO (21:28)
[2018-12-23] MEDS: SENNA TAB PO (21:29)
[2018-12-24] MEDS: ACCU-CHEK XX (02:00)
[2018-12-24] MEDS: HYDROCODONE/APAP (5/325) TAB PO ×2 (02:01→15:31)
[2018-12-24] MEDS: PANTOPRAZOLE (EC) 40 MG TAB PO (06:17)
[2018-12-24] MEDS: PIPER-TAZO 3.375 GM IV (PMX) 100 ML IVPB ×3 (06:17→18:00)
[2018-12-24] MEDS: INSULIN ASPART [NOVOLOG] 3 ML PEN SC ×4 (08:00→20:35)
[2018-12-24] MEDS: INSULIN GLARGINE [LANTus] (100 UNITS/ML) SYG SC (08:28)
[2018-12-24] MEDS: MULTIVITAMINS/MINERALS TAB PO (08:29)
[2018-12-24] MEDS: METOPROLOL 50 MG TAB PO ×2 (08:29→20:37)
[2018-12-24] MEDS: POLYETHYLENE GLYCOL 17 GM PACKET PO (08:29)
[2018-12-24] MEDS: ASCORBIC ACID 500 MG TAB PO (08:29)
[2018-12-24] MEDS: FINASTERIDE 5 MG TAB PO (08:29)
[2018-12-24] MEDS: DABIGATRAN 150 MG CAP PO (08:30)
[2018-12-24] MEDS: BALSAM PERU/CASTOR OIL 60 GM TUBE TOP (08:31)
[2018-12-24] MEDS: HYDROCORTISONE 0.5% 28.35 GM OINT TOP (08:31)
[2018-12-24] MEDS: PETROLATUM 5 GM OINT TOP (08:32)
[2018-12-24 14:46] LABS: ADD MAN DIFF? NO
[2018-12-24 14:47] LABS: WHITE BLOOD COUNT 6.7 10^3/ul (4.8-10.8)
[2018-12-24 14:47] LABS: BASOPHILS % 0.3 % (0.0-2.0); EOSINOPHILS # 0.1 10^3/ul (0.0-0.5); EOSINOPHILS % 1.3 % (0.0-7.0); HEMOGLOBIN 11.2 g/dl (14.0-18.0); LYMPHOCYTES # 1.3 10^3/ul (0.8-2.9); LYMPHOCYTES % 19.6 % (15.0-51.0); MEAN CORPUSCULAR HEMOGLOBIN 28.4 pg (29.0-33.0); MEAN CORPUSCULAR VOLUME 88.6 fl (82.0-101.0); MEAN PLATELET VOLUME 10.7 fl (7.4-10.4); MONOCYTE # 0.6 10^3/ul (0.3-0.9); MONOCYTES % 8.4 % (0.0-11.0); NEUTROPHIL # 4.7 10^3/ul (1.6-7.5); NEUTROPHILS % 69.7 % (39.0-77.0); PLATELET COUNT 178 10^3/UL (140-415); RED BLOOD COUNT 3.95 10^6/ul (4.70-6.10); RED CELL DISTRIBUTION WIDTH 15.2 % (11.5-14.5)
[2018-12-24 15:05] LABS: MAGNESIUM 1.8 mg/dl (1.7-2.5)
[2018-12-24 15:07] LABS: ALANINE AMINOTRANSFERASE 8 IU/L (13-69); ALBUMIN 2.7 g/dl (3.3-4.9); ALBUMIN/GLOBULIN RATIO 0.72; ALKALINE PHOSPHATASE 122 IU/L (42-121); ANION GAP 9 (5-13); ASPARTATE AMINO TRANSFERASE 16 IU/L (15-46); BILIRUBIN,INDIRECT 0.4 mg/dl (0-1.1); BILIRUBIN,TOTAL 0.4 mg/dl (0.2-1.3); BLOOD UREA NITROGEN 27 mg/dl (7-20); CALCIUM 8.3 mg/dl (8.4-10.2); CARBON DIOXIDE 20 mmol/L (21-31); CHLORIDE 111 mmol/L (97-110); CREATININE 1.67 mg/dl (0.61-1.24); GLUCOSE 114 mg/dl (70-220); POTASSIUM 3.5 mmol/L (3.5-5.1); SODIUM 140 mmol/L (135-144); TOTAL PROTEIN 6.4 g/dl (6.1-8.1)
[2018-12-24] MEDS: SENNA TAB PO (20:36)
[2018-12-24] MEDS: TAMSULOSIN (SR) 0.4 MG CAP PO (20:36)
[2018-12-25] MEDS: PIPER-TAZO 3.375 GM IV (PMX) 100 ML IVPB ×3 (00:07→11:52)
[2018-12-25] MEDS: ACCU-CHEK XX (02:00)
[2018-12-25] MEDS: PANTOPRAZOLE (EC) 40 MG TAB PO (05:00)
[2018-12-25] MEDS: INSULIN ASPART [NOVOLOG] 3 ML PEN SC ×2 (07:57→11:52)
[2018-12-25] MEDS: DABIGATRAN 150 MG CAP PO (08:55)
[2018-12-25] MEDS: ASCORBIC ACID 500 MG TAB PO (08:55)
[2018-12-25] MEDS: FINASTERIDE 5 MG TAB PO (08:55)
[2018-12-25] MEDS: MULTIVITAMINS/MINERALS TAB PO (08:55)
[2018-12-25] MEDS: METOPROLOL 50 MG TAB PO (08:56)
[2018-12-25] MEDS: MAGNESIUM HYDROXIDE 30ML CUP PO (08:57)
[2018-12-25] MEDS: PETROLATUM 5 GM OINT TOP (08:57)
[2018-12-25] MEDS: POLYETHYLENE GLYCOL 17 GM PACKET PO (08:57)
[2018-12-25] MEDS: BALSAM PERU/CASTOR OIL 60 GM TUBE TOP (09:00)
[2018-12-25] MEDS: INSULIN GLARGINE [LANTus] (100 UNITS/ML) SYG SC (09:04)
[2018-12-25] MEDS: HYDROCODONE/APAP (5/325) TAB PO (09:15)
== END 2018-12-25 13:30 | DRG 908 ==
LOC: E/R 12:26 → PP2 18:15
PROVIDERS: Hospitalist
PROC: 0FT44ZZ Resection of Gallbladder, Percutaneous Endoscopic Approach (ICD-10-PCS; principal; 2018-12-19 11:30)
PROC: 0FC98ZZ Extirpation of Matter from Common Bile Duct, Via Natural or Artificial Opening Endoscopic (ICD-10-PCS; 2018-12-19 11:50)
PROC: BF13YZZ Fluoroscopy of Gallbladder and Bile Ducts using Other Contrast (ICD-10-PCS; 2018-12-19 11:50)
PROC: 0F24X0Z Change Drainage Device in Gallbladder, External Approach (ICD-10-PCS; 2018-12-19 11:50)
DX: T85.520A Displacement of bile duct prosthesis, initial encounter (principal); I48.92 Unspecified atrial flutter; N17.9 Acute kidney failure, unspecified; K56.7 Ileus, unspecified; K80.46 Calculus of bile duct with acute and chronic cholecystitis without obstruction; Y81.8 Miscellaneous general- and plastic-surgery devices associated with adverse incidents, not elsewhere classified; I48.2 Chronic atrial fibrillation; I12.9 Hypertensive chronic kidney disease with stage 1 through stage 4 chronic kidney disease, or unspecified chronic kidney disease; E11.22 Type 2 diabetes mellitus with diabetic chronic kidney disease; N18.9 Chronic kidney disease, unspecified; E02 Subclinical iodine-deficiency hypothyroidism; Z89.512 Acquired absence of left leg below knee; N40.0 Benign prostatic hyperplasia without lower urinary tract symptoms; K59.00 Constipation, unspecified; D64.9 Anemia, unspecified; F06.31 Mood disorder due to known physiological condition with depressive features; E78.5 Hyperlipidemia, unspecified; J44.9 Chronic obstructive pulmonary disease, unspecified; Z86.73 Personal history of transient ischemic attack (TIA), and cerebral infarction without residual deficits
CPT/HCPCS: 36415; 71045; 74176; 74181; 74320; 74330; 75984; 80048; 80053; 80061; 80076; 81003; 82962; 83036; 83690; 83735; 84100; 84439; 84443; 84484; 85025; 85610; 85730; 88304; 92610; 93005; 96374; 97163; 97167; 99285-25

== ENCOUNTER 2019-05-11 17:24 | Emergency (ER) | payer OTHER, MEDICAID | END 2019-05-11 18:41 | disposition home or self-care (01) | LOC: E/R 18:41 | DX: L23.9 Allergic contact dermatitis, unspecified cause (principal); R09.81 Nasal congestion; N18.9 Chronic kidney disease, unspecified; I12.9 Hypertensive chronic kidney disease with stage 1 through stage 4 chronic kidney disease, or unspecified chronic kidney disease; E11.22 Type 2 diabetes mellitus with diabetic chronic kidney disease; Z86.73 Personal history of transient ischemic attack (TIA), and cerebral infarction without residual deficits; Z87.891 Personal history of nicotine dependence; Z79.4 Long term (current) use of insulin | CPT/HCPCS: 99283 ==